=== PATIENT | male | born 1985 | race Two or more races ===

== ENCOUNTER 2021-08-23 10:37 | Emergency (ER) | payer SELFPAY ==
[2021-08-23 12:03] LABS: BILIRUBIN NEGATIVE (NEGATIVE); BLOOD NEGATIVE Ery/uL (NEGATIVE); CLARITY CLEAR (CLEAR); COLOR YELLOW (YELLOW); GLUCOSE (U) NORMAL (NORMAL); LEUKOCYTES NEGATIVE Leu/uL (NEGATIVE); NITRITE NEGATIVE (NEGATIVE); PROTEIN NEGATIVE (NEGATIVE); SPECIFIC GRAVITY 1.015 (1.001-1.030); UROBILINOGEN 0.2 mg/dL (0.2-1.0)
[2021-08-23] MEDS ORDERED: VIBRAMYCIN100 MG PO (12:18)
[2021-08-23] MEDS ORDERED: PYRIDIUM200 MG PO (12:18)
[2021-08-25 22:07] LABS: CHLAMYDIA TRACHOMATIS, NAA Negative (Negative); NEISSERIA GONORRHOEAE, NAA Negative (Negative)
== END 2021-08-23 13:23 | disposition home or self-care (01) ==
LOC: FER 10:37
PROVIDERS: Emergency Medicine
DX: N34.1 Nonspecific urethritis (principal)
CPT/HCPCS: 81003; 87491; 87591; 99283; J0696